=== PATIENT | male | born 1985 | race Hispanic/Latino ===

== ENCOUNTER 2017-01-17 06:30 | Emergency (ER) | payer BC ==
[~2017-01-17] VITALS: Ht 182.9 cm; Wt 98.3 kg
[2017-01-17 06:53] LABS: HEMATOCRIT 50.6 % (38.0-50.0); MCH 30.9 PG (29.0-34.0); MCHC 34.2 G/DL (30.0-36.0); MCV 90.4 FL (86-99); RBC DIS.WIDTH-CV 12.4 % (11.8-14.6); RBC DIS.WIDTH-SD 40.9 % (39-53); WHITE BLOOD COUNT 12.4 K/uL (4.1-10.2)
[2017-01-17 07:22] LABS: CHLORIDE 105 mEq/L (99-109); POTASSIUM 4.2 mEq/L (3.7-5.4); SODIUM 139 mEq/L (136-147)
[2017-01-17 07:24] LABS: GLUCOSE 116 mg/dL (70-99)
[2017-01-17 07:25] LABS: ANION GAP 13 MEQ/L (2-14)
[2017-01-17 07:26] LABS: TOTAL BILIRUBIN 1.6 mg/dL (0.0-1.0)
[2017-01-17 07:27] LABS: ALKALINE PHOSPHATASE 87 IU/L (3-129)
[2017-01-17 07:28] LABS: GFR ESTIMATE (CALCULATED) > 59 mL/min/
[2017-01-17 07:29] LABS: UREA NITROGEN (BUN) 16 mg/dL (9-23)
[2017-01-17 07:31] LABS: LIPASE 28 U/L (1.0-51.0)
[2017-01-17 07:34] LABS: HEMATOLOGY COMMENT 1 SN; MEAN PLAT.VOLUME 11.4 uM^3 (9.0-12.4); PLAT.SUFFICIENCY ADEQUATE; PLATELET COUNT 229 K/uL (156-360)
[2017-01-17] MEDS ORDERED: BENTYL20 MG PO (09:52)
[2017-01-17] MEDS ORDERED: ZOFRAN4 MG PO (09:52)
[2017-01-17 10:18] VITALS: BP 107/70
== END 2017-01-17 10:21 | disposition home or self-care (01) ==
LOC: EME 06:30
DX: R11.2 Nausea with vomiting, unspecified (principal); R19.7 Diarrhea, unspecified; R10.9 Unspecified abdominal pain; F17.200 Nicotine dependence, unspecified, uncomplicated
CPT/HCPCS: 76705; 80053; 81003; 83690; 85027; 99281; 99285; J1885; J2405; J7030

== ENCOUNTER 2017-05-04 07:43 | Emergency (ER) | payer SELFPAY ==
[~2017-05-04] VITALS: Ht 182.9 cm; Wt 92.6 kg
[~2017-05-04 07:43] MED LIST: BENTYL20 MG PO; ZOFRAN4 MG PO
[2017-05-04 08:29] LABS: HEMATOCRIT 39.2 % (38.0-50.0); HEMOGLOBIN 13.2 G/DL (12.5-16.6); MCH 29.7 PG (29.0-34.0); MCHC 33.7 G/DL (30.0-36.0); MCV 88.1 FL (86-99); RBC DIS.WIDTH-CV 13.1 % (11.8-14.6); RBC DIS.WIDTH-SD 42.8 % (39-53); RED BLOOD COUNT 4.45 M/uL (4.00-5.50)
[2017-05-04 08:48] LABS: CHLORIDE 107 mEq/L (99-109); SODIUM 139 mEq/L (136-147)
[2017-05-04 08:50] LABS: GLUCOSE 95 mg/dL (70-99)
[2017-05-04 08:54] LABS: CREATININE 0.9 mg/dL (0.6-1.3); GFR ESTIMATE (CALCULATED) > 59 mL/min/ (58.99-99999)
[2017-05-04 08:55] LABS: UREA NITROGEN (BUN) 10 mg/dL (9-23)
[2017-05-04 09:10] LABS: PLAT.SUFFICIENCY ADEQUATE; PLATELET COUNT 184 K/uL (156-360)
[2017-05-04 09:47] LABS: APPEARANCE SL.HAZY ((CLEAR)); BILIRUBIN NEGATIVE; BLOOD NEGATIVE; COLOR YELLOW ((YELLOW)); GLUCOSE (STRIP) NEGATIVE; KETONES NEGATIVE; LEUKOCYTES NEGATIVE; NITRITE NEGATIVE; PROTEIN (STRIP) 30; SPECIFIC GRAVITY 1.021 (1.000-1.030)
[2017-05-04 10:00] LABS: BACTERIA RARE /HPF; CALCIUM OXALATE CRYSTALS 2+ /HPF; EPITHELIAL CELLS RARE /HPF; MUCUS TRACE /LPF; RED BLOOD CELLS 0-5 /HPF (0-5); WHITE BLOOD CELLS 0-5 /HPF (0-5)
[2017-05-04 10:12] LABS: ALBUMIN 3.9 g/dL (3.2-4.8)
[2017-05-04 10:15] LABS: TOTAL PROTEIN 7.3 g/dL (6.4-8.3)
[2017-05-04 10:17] LABS: TOTAL BILIRUBIN 1.5 mg/dL (0.0-1.0)
[2017-05-04 10:18] LABS: ALKALINE PHOSPHATASE 90 IU/L (3-129)
[2017-05-04 10:21] LABS: ALT (GPT) 173 IU/L (3-49); AST (GOT) 109 IU/L (2-34); DIRECT BILIRUBIN 0.6 mg/dL (0.0-0.3)
[2017-05-04 12:21] LABS: HEPATITIS B SURFACE ANTIGEN Nonreactive
[2017-05-04 12:23] LABS: ANTI-HEPATITIS A VIRUS (IGM) Nonreactive; ANTI-HEPATITIS B CORE (IGM) Nonreactive
[2017-05-04] MEDS ORDERED: ZOFRAN ODT8 MG PO (13:50)
[2017-05-04] MEDS ORDERED: MOTRIN600 MG PO (14:16)
[2017-05-04 14:20] VITALS: BP 104/66
[2017-05-04 14:26] LABS: HEPATITIS C ANTIBODY Nonreactive
== END 2017-05-04 14:20 | disposition home or self-care (01) ==
LOC: EME 07:43
PROVIDERS: Physician Assistant
DX: R10.9 Unspecified abdominal pain (principal); R11.2 Nausea with vomiting, unspecified; R50.9 Fever, unspecified; R05 Cough; R16.0 Hepatomegaly, not elsewhere classified; K76.0 Fatty (change of) liver, not elsewhere classified; K76.89 Other specified diseases of liver; F17.200 Nicotine dependence, unspecified, uncomplicated
CPT/HCPCS: 71046; 76705; 80048; 80074; 80076; 81003; 85027; 94640; 99281; 99284